=== PATIENT | male | born 1985 | race Caucasian/White ===

== ENCOUNTER 2019-12-13 18:06 | Emergency (ER) | payer OTHER ==
[~2019-12-13] VITALS: Ht 177.8 cm; Wt 90.3 kg
[2019-12-13 18:33] LABS: URINE BILIRUBIN NEGATIVE (Negative); URINE BLOOD TRACE (Negative); URINE CLARITY CLEAR; URINE COLOR STRAW; URINE GLUCOSE-RANDOM NEGATIVE (Negative); URINE KETONES NEGATIVE (Negative); URINE LEUKOCYTES-REFLEX NEGATIVE (Negative); URINE NITRITE-REFLEX NEGATIVE (Negative); URINE PROTEIN NEGATIVE (Negative); URINE SPECIFIC GRAVITY <= 1.005 (1.005-1.030); URINE UROBILINOGEN 0.2 E.U./dl (0.2-1.0)
[2019-12-13 18:45] LABS: ABSOLUTE BASOPHILS 0.1 thou/uL (0.0-0.2); ABSOLUTE EOSINOPHILS 0.3 thou/uL (0.0-0.7); ABSOLUTE LYMPHOCYTES 2.7 thou/uL (0.8-5.3); ABSOLUTE MONOCYTES 0.6 thou/uL (0.0-1.2); ABSOLUTE NEUTROPHILS 4.1 thou/uL (1.6-8.1); BASOPHILS 1.1 %; EOSINOPHILS 3.3 %; HEMATOCRIT 43.7 % (42.0-52.0); LYMPHOCYTES 34.6 %; MCH 29.9 pg (26.0-34.0); MCHC 34.2 g/dL (28.0-37.0); MCV 87.3 fL (80.0-100.0); MONOCYTES 7.4 %; MPV 8.2 fl. (7.2-11.1); NUCLEATED RBCS 0 /100WBC; PLATELET COUNT* 267 thou/uL (150-400); POLYS 53.6 %; RBC 5.01 mil/uL (4.50-6.00); WBC 7.7 thou/uL (4.0-11.0)
[2019-12-13 18:55] LABS: CALCIUM 8.5 mg/dL (8.5-10.1); POTASSIUM 3.6 mmol/L (3.5-5.1)
[2019-12-13 18:59] LABS: ALBUMIN 3.6 g/dL (3.4-5.0); TOTAL BILIRUBIN 0.3 mg/dL (<0.1-1.0); TOTAL PROTEIN 7.2 g/dL (6.4-8.2)
[2019-12-13 21:15] VITALS: BP 144/77
--- NOTE | 2019-12-14 09:42 | EKG ---
[place] [address] ELECTROCARDIOGRAM REPORT Name: CATALINADANYELL Kelly Room: [facility]#: [id number] Admission: 12/13/19 Attend Phys: Discharge: 12/13/19 Date of : 83 Date of Service: 12/13/191830 Report #: [id number] THIS REPORT FOR: //name// [facility] ED Test Date: 2019-12-13 Test Time: 18:31:25 Pat Name: DANYELL ARNOLD Department: Room: Gender: Web Weaver: [facility] : 1985 Requested By: Linda Abdi Order Number: [id number] MD: Earl Melvin Measurements Intervals [place] Rate: 54 P: 56 NV: 145 QRS: 92 QRSD: 99 T: 35 QT: 421 QTc: 399 Interpretive Statements Sinus arrhythmia Borderline right axis deviation No previous ECG available for comparison Electronically Signed On 12-14-2019 9:42:29 CDT by Earl Melvin [email or web address] <ELECTRONICALLY SIGNED> By: Earl Melvin MD, [facility] 12/14/1943 30 30 Earl Melvin MD, FACC /EPI
== END 2019-12-13 21:15 | disposition home or self-care (01) ==
LOC: M.ERS 18:06
PROVIDERS: Nurse Practitioner Family
DX: K80.50 Calculus of bile duct without cholangitis or cholecystitis without obstruction (principal); K76.0 Fatty (change of) liver, not elsewhere classified; Z90.49 Acquired absence of other specified parts of digestive tract; Z88.8 Allergy status to other drugs, medicaments and biological substances